=== PATIENT | male | born 1995 | race Caucasian/White ===

== ENCOUNTER 2016-09-25 11:35 | Emergency (ER) | payer BC, OTHER ==
[~2016-09-25] VITALS: Ht 182.9 cm; Wt 69.3 kg
[~2016-09-25 11:35] MED LIST: ADDE20XR PO; HYDR-3533 PO
[2016-09-25 11:50] VITALS: BP 108/73; PULSE 88; RESP 16; TEMP 97.8; O2SAT 98
--- NOTE | 2016-09-25 12:14 | PD ---
HPI Chief Complaint: Cold / Flu Symptoms Time Seen by Provider: 12:06 Travel History International Travel<30 days: No Contact w/Intl Traveler<30days: No Traveled to known affect area: No History of Present Illness HPI 21-year-old male presents to the emergency room for evaluation of productive cough, headache, congestion, sore throat, and earache for the past. Patient states he believes he has the flu but his symptoms keep getting worse. He has been taking [id number] DayQuil, NyQuil, and ibuprofen without significant relief in symptoms. Cough is productive of clear sputum. States he is coughing so much it is keeping him up at night and causing rib pain. Patient smokes less than a pack of cigarettes per day but has cut back since being ill. Denies chronic medical conditions or daily medications. Denies fever, chills , nausea, and vomiting. PFSH Past Medical History Medical History: Denies Significant Hx ADD: Yes Anxiety: No Depression: No Diminished Hearing: No Endocrine: No Genitourinary: No Immune Disorder: No Musculoskeletal: No Neurologic: No Reproductive: No Respiratory: Yes (childhood asthma) Tetanus Vaccination: < 5 Years Influenza Vaccination: No Past Surgical History Surgical History: No Previous Surgery Social History Alcohol Use: No Tobacco Use: Yes (08/29 ppd) Substance Use: No Allergies-Medications (Allergen,Severity, Reaction): Coded Allergies: No Known Allergies (Unverified , 09/25/16) Reported Meds & Prescriptions Reported Meds & Active Scripts Active Lortab 5 mg/325 mg (Hydrocodone/Acetaminophen 5 mg/325 mg) 1 Tab 1 Tab PO Q6H PRN Reported Adderall XR 20 mg (Amphetamine/Dextroamphetamine) 20 Mg Cap 40 Mg PO DAILY Review of Systems Except as stated in HPI: all other systems reviewed are Neg Physical Exam Narrative GENERAL: Well-nourished, well-developed male in no acute distress. Afebrile. Ambulatory. SKIN: Warm and dry. HEAD: Normocephalic. EYES: No scleral icterus. No injection or drainage. NECK: Supple, trachea midline. No JVD or lymphadenopathy. ENT: Mucosa pink and moist. Mild to moderate erythema without edema or exudates. No uvular edema. No uvular, palatal, or tonsillar deviation. Airway patent. Nasal turbinates appear normal without nasal blood, purulent drainage or septal hematoma. EARS: Bilateral pinnae and external canals appear within normal limits. Bilateral tympanic membranes without erythema, dullness or perforation. CARDIOVASCULAR: Regular rate and rhythm without murmurs, gallops, or rubs. RESPIRATORY: Breath sounds equal bilaterally. No accessory muscle use. No crackles or rales. Bilateral expiratory lower lung field rhonchi and wheezing. Data Data Last Documented VS Vital Signs Date Time Temp Pulse Resp B/P Pulse Ox O2 Delivery O2 Flow Rate FiO2 09/25/16 11:59 20 98 09/25/16 11:50 97.8 88 108/73 MDM Medical Decision Making Medical Screen Exam Complete: Yes Emergency Medical Condition: Yes Medical Record Reviewed: Yes Differential Diagnosis Pneumonia versus bronchitis versus sinusitis versus URI Narrative Course 21-year-old male presents to the emergency room for evaluation of productive cough and cold symptoms for the past 3 days. States symptoms seem to be worsening. Cough is productive of clear sputum. Vital signs stable. No evidence of bacterial infection in the ears, throat, or nose. Lungs sounds reveal bilateral lower lung field wheezing and rhonchi. Likely viral bronchitis however patient will be treated empirically for pneumonia given lung exam and worsening condition. Told to follow up with her primary care physician or return to the emergency room for worsening symptoms. He understands and agrees to plan. Diagnosis Primary Impression: Acute bronchitis Qualified Code: J20.9 - Acute bronchitis, unspecified organism Referrals: Primary Care Physician Patient Instructions: Acute Bronchitis (ED), General Instructions Additional Instructions: Rest and drink plenty of fluids. Take Z-Sherman as directed, until gone. Use inhaler as directed, as needed for cough. Take ibuprofen with food as directed, as needed for pain. Follow-up with a primary care physician. Return to the emergency room for worsening symptoms. Disposition: 01 DISCHARGE HOME Condition: Stable Michelle Olmstead Sep 25, 2016 12:14
[2016-09-25] MEDS ORDERED: AZIT250T3 PO (12:15)
[2016-09-25] MEDS ORDERED: VENTAER INH (12:15)
== END 2016-09-25 12:34 | disposition home or self-care (01) ==
LOC: PHEFT 11:35
DX: J20.9 Acute bronchitis, unspecified (principal)
CPT/HCPCS: 99283

== ENCOUNTER 2017-02-25 07:14 | Emergency (ER) | payer BC ==
[~2017-02-25 07:14] MED LIST changes: +AZIT250T3 PO; +VENTAER INH
[2017-02-25 07:18] VITALS: BP 116/88; PULSE 79; RESP 15; TEMP 97.7; O2SAT 98
[2017-02-25] MEDS ORDERED: TETANUS/DIPHTHERIA TOXOID ADULT 0.5 ML VIAL IM ONE (07:30)
[2017-02-25] MEDS ORDERED: IBUP-232 PO (07:46)
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
== END 2017-02-25 08:03 | disposition home or self-care (01) ==
LOC: PHED 07:14
DX: S40.011A Contusion of right shoulder, initial encounter (principal); S40.211A Abrasion of right shoulder, initial encounter; S80.211A Abrasion, right knee, initial encounter; S60.221A Contusion of right hand, initial encounter; S60.511A Abrasion of right hand, initial encounter; Z23 Encounter for immunization; F17.210 Nicotine dependence, cigarettes, uncomplicated; V00.131A Fall from skateboard, initial encounter; Y93.51 Activity, roller skating (inline) and skateboarding; Y92.9 Unspecified place or not applicable; Y99.9 Unspecified external cause status
CPT/HCPCS: 73030; 73130; 90471; 90714